=== PATIENT | female | born 1990 | race Caucasian/White ===

== ENCOUNTER 2019-06-05 17:27 | Inpatient (IN) | payer OTHER ==
[~2019-06-05] VITALS: Ht 167.6 cm; Wt 104.3 kg
--- NOTE | 2019-06-05 17:51 | ED General ---
General Chief Complaint: General Problems/Pain Stated Complaint: TAILBONE PAIN Nursing Triage Note: Pt amb to triage w/o difficulty. a&ox4. C/o tailbone discomfort that began on the evening of 06/04/19. Reports sharp pain radiating from tailbone to bilat dorsal legs. Denies loss of bowel or bladder function. Denies injury. Nursing Sepsis Screen: No Definite Risk Source of Information: Patient Exam Limitations: No Limitations History of Present Illness Date Seen by Provider: Jun 05, 2019 Time Seen by Provider: 17:49 Initial Comments To ER 5 vehicle with reports of midline low back pain that radiates around to the front groin. This began 2-3 days ago. Rates pain 10 out of 10 worsened by movement. No fevers or chills. Reports that she has had vaginal bleeding intermittently for 2 months, seemed to recur yesterday. States that is "always possible" but doesn't know herself to be . States that she did have a miscarriage in October. Timing/Duration: 1-2 Days Severity: Moderate Allergies and Home Medications Allergies Coded Allergies: amoxicillin (Verified Allergy, Unknown, 06/05/19) Patient Home Medication List Home Medication List Reviewed: Yes Review of Systems Review of Systems Constitutional: see HPI EENTM: see HPI Respiratory: no symptoms reported Cardiovascular: no symptoms reported Genitourinary: no symptoms reported Musculoskeletal: see HPI, back pain Skin: no symptoms reported Psychiatric/Neurological: No Symptoms Reported Past Zlqesyn-Adjchh-Owiayy Hx Patient Social History Recent Foreign Travel: No Contact w/Someone Who Travel: No Recent Infectious Disease Expo: No Physical Exam Vital Signs Vital Signs - First Documented 06/05/19 17:29 Temp 96.7 Pulse 99 Resp 17 B/P (MAP) 122/77 (92) Pulse Ox 99 O2 Delivery Room Air Capillary Refill : Less Than 3 Seconds Height, Weight, BMI Height: 5'6.00" Weight: 230lbs. oz. 104.679271rx; BMI Method:Stated General Appearance: WD/WN, Mild Distress (related to pain), Obese Eyes: Bilateral Eye Normal Inspection, Bilateral Eye PERRL, Bilateral Eye EOMI Respiratory: No Accessory Muscle Use, No Respiratory Distress Cardiovascular: Regular Rate, Rhythm, Normal Peripheral Pulses Gastrointestinal: Normal Bowel Sounds, Non Tender, Soft Back: Normal Inspection, Other (there is no pilonidal abscess, no erythema or fluctuance at the top of the gluteal cleft.) Neurologic/Psychiatric: Alert, Oriented x3, No Motor/Sensory Deficits Skin: Normal Color, Warm/Dry Progress/Results/Core Measures Suspected Sepsis Recent Fever Within 48 Hours: No Infection Criteria Present: None New/Unexplained Altered Menta: No Sepsis Screen: No Definite Risk SIRS Temperature:96.7 Pulse: 99 Respiratory Rate: 17 Laboratory Tests 06/05/19 18:00: White Blood Count 13.7H Blood Pressure 122 /77 Mean: 92 Laboratory Tests 06/05/19 18:00: Creatinine 0.77, Platelet Count 247, Total Bilirubin 0.5 Results/Orders Lab Results Laboratory Tests Test 06/05/19 17:48 06/05/19 18:00 Range/Units Urine Color YELLOW Urine Clarity CLEAR Urine pH 8 5-9 Urine Specific [place] 1.010 L 1.016-1.022 Urine Protein NEGATIVE NEGATIVE Urine Glucose (UA) NEGATIVE NEGATIVE Urine Ketones NEGATIVE NEGATIVE Urine Nitrite NEGATIVE NEGATIVE Urine Bilirubin NEGATIVE NEGATIVE Urine Urobilinogen NORMAL NORMAL MG/DL Urine Leukocyte Esterase 1+ H NEGATIVE Urine RBC (Auto) 4+ H NEGATIVE Urine RBC 10-25 H /HPF Urine WBC 5-10 H /HPF Urine Squamous Epithelial Cells 5-10 /HPF Urine Crystals NONE /LPF Urine Bacteria MODERATE H /HPF Urine Casts NONE /LPF Urine Mucus NEGATIVE /LPF Urine Culture Indicated YES White Blood Count 13.7 H 4.3-11.0 10^3/uL Red Blood Count 4.12 L 4.35-5.85 10^6/uL Hemoglobin 12.3 11.5-16.0 G/DL Hematocrit 37 35-52 % Mean Corpuscular Volume 90 80-99 FL Mean Corpuscular Hemoglobin 30 25-34 PG Mean Corpuscular Hemoglobin Concent 33 32-36 G/DL Red Cell Distribution Width 15.7 H 10.0-14.5 % Platelet Count 247 130-400 10^3/uL Mean Platelet Volume 10.6 H 7.4-10.4 FL Neutrophils (%) (Auto) 77 H 42-75 % Lymphocytes (%) (Auto) 17 12-44 % Monocytes (%) (Auto) 5 0-12 % Eosinophils (%) (Auto) 1 0-10 % Basophils (%) (Auto) 0 0-10 % Neutrophils # (Auto) 10.5 H 1.8-7.8 X 10^3 Lymphocytes # (Auto) 2.3 1.0-4.0 X 10^3 Monocytes # (Auto) 0.7 0.0-1.0 X 10^3 Eosinophils # (Auto) 0.2 0.0-0.3 10^3/uL Basophils # (Auto) 0.0 0.0-0.1 10^3/uL Sodium Level 137 135-145 MMOL/L Potassium Level 3.9 3.6-5.0 MMOL/L Chloride Level 106 98-107 MMOL/L Carbon Dioxide Level 21 21-32 MMOL/L Anion Gap 10 5-14 MMOL/L Blood Urea Nitrogen 4 L 7-18 MG/DL Creatinine 0.77 0.60-1.30 MG/DL Estimat Glomerular Filtration Rate > 60 BUN/Creatinine Ratio 5 Glucose Level 80 70-105 MG/DL Calcium Level 8.7 8.5-10.1 MG/DL Corrected Calcium 9.3 8.5-10.1 MG/DL Total Bilirubin 0.5 0.1-1.0 MG/DL Aspartate Amino Transf (AST/SGOT) 6 5-34 U/L Alanine Aminotransferase (ALT/SGPT) 9 0-55 U/L Alkaline Phosphatase 175 H 40-136 U/L Total Protein 6.4 6.4-8.2 GM/DL Albumin 3.2 3.2-4.5 GM/DL My Orders Orders - JEFF VYAS APRN Hydrocodone/Apap 5/325 Tablet (Lortab 5 (06/05/19 18:00) Ketorolac Injection (Toradol Injection) (06/05/19 18:00) Ua Culture If Indicated (06/05/19 17:46) Urine Bedside (06/05/19 17:46) Urine Culture (06/05/19 17:48) Cbc With Automated Diff (06/05/19 18:09) Comprehensive Metabolic Panel (06/05/19 18:09) Ua Culture If Indicated (06/05/19 18:09) Ed Iv/Invasive Line Start (06/05/19 18:09) Hcg,Quantitative (06/05/19 18:09) Oxytocin/Normal Saline (Pitocin Pre-Mix) (06/05/19 18:20) Vital Signs/I&O 8/15/19 17:29 Temp 96.7 Pulse 99 Resp 17 B/P (MAP) 122/77 (92) Pulse Ox 99 O2 Delivery Room Air Capillary Refill : Less Than 3 Seconds Blood Pressure Mean: 92 Departure Communication (Admissions) 1756-Bedside test is positive (pt informed of this but otherwise unaware). We will follow this with labs. Hydrocodone was given for pain. 2-3 minutes ago. Do not have ultrasound available here, she will need transferred tonight for ultrasound to rule out ectopic. Dr MACHADO at bedside to evaluate bedside ultrasound, rounded structure midline low pelvis, when scanning further to the right there is appearance of ribs and spinal column. Dr. BREWSTER was called, patient transferred to women's services. Impression Primary Impression: Pain during labor Disposition: ADMITTED INPATIENT Condition: Stable Admissions Decision to Admit Reason: Admit from ER (General) Decision to Admit/Date: Jun 05, 2019 Time/Decision to Admit Time: 18:38 Departure-Patient Inst. Referrals: NO,LOCAL PHYSICIAN (PCP/Family) Primary Care Physician Images Torso/Trunk 1 - Other-See Progress Note 1 - Other-See Progress Note JEFF VYAS PUBLISHING DIRECTOR Jun 05, 2019 17:51
[2019-06-05 17:53] LABS: BILIRUBIN,URINE NEGATIVE (NEGATIVE); CLARITY,URINE CLEAR; COLOR,URINE YELLOW; GLUCOSE, URINE (UA) NEGATIVE (NEGATIVE); KETONES,URINE NEGATIVE (NEGATIVE); LEUKOCYTE ESTERASE ,URINE 1+ (NEGATIVE); NITRITE,URINE NEGATIVE (NEGATIVE); PH,URINE 8 (5-9); PROTEIN,URINE NEGATIVE (NEGATIVE); UROBILINOGEN,URINE NORMAL (NORMAL)
[2019-06-05] MEDS ORDERED: HYDROcodone/APAP 5 MG/325 MG (LORTAB) TAB PO ONE (18:00)
[2019-06-05] MEDS ORDERED: KETOROLAC 30 MG/ML VIAL IM ONE (18:00)
[2019-06-05 18:08] LABS: BACTERIA,URINE MODERATE /HPF
[2019-06-05 18:16] LABS: BASOPHILS % (AUTO) 0 % (0-10); EOSINOPHILS # (AUTO) 0.2 10^3/uL (0.0-0.3); EOSINOPHILS % (AUTO) 1 % (0-10); HEMATOCRIT 37 % (35-52); HEMOGLOBIN 12.3 G/DL (11.5-16.0); LYMPHOCYTES # (AUTO) 2.3 X 10^3 (1.0-4.0); LYMPHOCYTES % (AUTO) 17 % (12-44); MEAN CORPUSCULAR HEMOGLOBIN 30 PG (25-34); MEAN CORPUSCULAR HGB CONC 33 G/DL (32-36); MEAN CORPUSCULAR VOLUME 90 FL (80-99); MEAN PLATELET VOLUME 10.6 FL (7.4-10.4); MONOCYTES # (AUTO) 0.7 X 10^3 (0.0-1.0); MONOCYTES % (AUTO) 5 % (0-12); NEUTROPHILS # (AUTO) 10.5 X 10^3 (1.8-7.8); NEUTROPHILS % (AUTO) 77 % (42-75); PLATELET COUNT 247 10^3/uL (130-400); RED CELL DISTRIBUTION WIDTH 15.7 % (10.0-14.5); WHITE BLOOD COUNT 13.7 10^3/uL (4.3-11.0)
[2019-06-05] MEDS ORDERED: OXYTOCIN/NORMAL SALINE 500 ML IV ONE (18:20)
--- NOTE | 2019-06-05 18:21 | NUR ---
1800: Pt moved to room #9 for bedside ultrasound. 1810: Bedside ultrasound preformed by Dr. Bernard & Enoc Spivey, STOPE MINER 1815: Dr. Fischer's vaginally checked pt (dialated 8cm 100% effaced) 1818: 18g IV to lt a/c accessed by MICHAEL Cadena. 181: 18g IV to rt a/c accessed by MICHAEL Gupta. 182: Dc'd pt via ED cart for emergent admission to OB. 1823: Pt arrives to OB. OB staff to assume care of pt @ this time.
[2019-06-05] MEDS ORDERED: LACTATED RINGERS 1,000 ML IV ONE (18:23)
[2019-06-05 18:24] VITALS: BP 126/88
[2019-06-05] MEDS ORDERED: CLINDAMYCIN 900 MG/50 ML IVPB 50 ML IV ONE (18:26)
[2019-06-05 18:27] LABS: ALANINE AMINOTRANSFERASE 9 U/L (0-55); ALBUMIN 3.2 GM/DL (3.2-4.5); ALKALINE PHOSPHATASE 175 U/L (40-136); BILIRUBIN,TOTAL 0.5 MG/DL (0.1-1.0); BUN/CREATININE RATIO 5; CALCIUM 8.7 MG/DL (8.5-10.1); CARBON DIOXIDE 21 MMOL/L (21-32); CHLORIDE 106 MMOL/L (98-107); CREATININE SERUM 0.77 MG/DL (0.60-1.30); GFR ESTIMATED > 60; GLUCOSE 80 MG/DL (70-105); POTASSIUM 3.9 MMOL/L (3.6-5.0); SODIUM 137 MMOL/L (135-145); TOTAL PROTEIN 6.4 GM/DL (6.4-8.2)
[2019-06-05] MEDS ORDERED: BETAMETHASONE ACE/NA PHOS 6 MG/ML (CELESTONE SOLUSPAN) ONE (18:31)
[2019-06-05] MEDS ORDERED: LIDOCAINE/EPI 2% 1:200,00 (XYLOCAINE) 10 ML VIAL ONE (18:42)
--- NOTE | 2019-06-05 18:57 | History & Physical-OB ---
OB - Chief Complaint & HPI Date/Time Date of Admission: Date of Admission: Jun 05, 2019 at 18:20 Date seen by a Provider: Jun 05, 2019 Time Seen by a Provider: 06:30 Chief Complaint/History OB-Reason for Admission/Chief: Onset of Labor Hx : 5 Estimated Date of Conception: Unknown, didnt know she was . FUndal height 35cm Admission Nurse Assessment Rev: Yes Allergies and Home Medications Allergies Coded Allergies: amoxicillin (Verified Allergy, Unknown, 06/05/19) Patient Home Medication List Home Medication List Reviewed: Yes OB - History Hx of Present Care: Yes Ultrasounds: No ultrasounds Information Pre-Hospital Medication Admins: Tylenol @ 0900 Patient Past Medical History none per patient Social History/Family History Recent Infectious Disease Expo: No OB - Admission Exam Physical Exam Vitals: Vital Signs 06/05/19 17:29 Temp 96.7 Pulse 99 Resp 17 B/P (MAP) 122/77 (92) Pulse Ox 99 O2 Delivery Room Air HEENT: NCAT Heart: Rhythm Normal Lungs: Clear Abdomen: Gravid Extremities: Normal Reflexes: Normal Cervical Dilatation: 7cm Effacement: 100% Station: -1 Membranes: Intact Heart Rate: 130's Accelerations: Accelerations Present Decelerations: No Decelerations Short Term Variability: Present Management Planner Variability: Average (6-25) Contractions on Admission: 6-10 Minutes Apart Labs Laboratory Tests Test 06/05/19 17:48 06/05/19 18:00 Range/Units Urine Color YELLOW Urine Clarity CLEAR Urine pH 8 5-9 Urine Specific [place] 1.010 L 1.016-1.022 Urine Protein NEGATIVE NEGATIVE Urine Glucose (UA) NEGATIVE NEGATIVE Urine Ketones NEGATIVE NEGATIVE Urine Nitrite NEGATIVE NEGATIVE Urine Bilirubin NEGATIVE NEGATIVE Urine Urobilinogen NORMAL NORMAL MG/DL Urine Leukocyte Esterase 1+ H NEGATIVE Urine RBC (Auto) 4+ H NEGATIVE Urine RBC 10-25 H /HPF Urine WBC 5-10 H /HPF Urine Squamous Epithelial Cells 5-10 /HPF Urine Crystals NONE /LPF Urine Bacteria MODERATE H /HPF Urine Casts NONE /LPF Urine Mucus NEGATIVE /LPF Urine Culture Indicated YES White Blood Count 13.7 H 4.3-11.0 10^3/uL Red Blood Count 4.12 L 4.35-5.85 10^6/uL Hemoglobin 12.3 11.5-16.0 G/DL Hematocrit 37 35-52 % Mean Corpuscular Volume 90 80-99 FL Mean Corpuscular Hemoglobin 30 25-34 PG Mean Corpuscular Hemoglobin Concent 33 32-36 G/DL Red Cell Distribution Width 15.7 H 10.0-14.5 % Platelet Count 247 130-400 10^3/uL Mean Platelet Volume 10.6 H 7.4-10.4 FL Neutrophils (%) (Auto) 77 H 42-75 % Lymphocytes (%) (Auto) 17 12-44 % Monocytes (%) (Auto) 5 0-12 % Eosinophils (%) (Auto) 1 0-10 % Basophils (%) (Auto) 0 0-10 % Neutrophils # (Auto) 10.5 H 1.8-7.8 X 10^3 Lymphocytes # (Auto) 2.3 1.0-4.0 X 10^3 Monocytes # (Auto) 0.7 0.0-1.0 X 10^3 Eosinophils # (Auto) 0.2 0.0-0.3 10^3/uL Basophils # (Auto) 0.0 0.0-0.1 10^3/uL Sodium Level 137 135-145 MMOL/L Potassium Level 3.9 3.6-5.0 MMOL/L Chloride Level 106 98-107 MMOL/L Carbon Dioxide Level 21 21-32 MMOL/L Anion Gap 10 5-14 MMOL/L Blood Urea Nitrogen 4 L 7-18 MG/DL Creatinine 0.77 0.60-1.30 MG/DL Estimat Glomerular Filtration Rate > 60 BUN/Creatinine Ratio 5 Glucose Level 80 70-105 MG/DL Calcium Level 8.7 8.5-10.1 MG/DL Corrected Calcium 9.3 8.5-10.1 MG/DL Total Bilirubin 0.5 0.1-1.0 MG/DL Aspartate Amino Transf (AST/SGOT) 6 5-34 U/L Alanine Aminotransferase (ALT/SGPT) 9 0-55 U/L Alkaline Phosphatase 175 H 40-136 U/L Total Protein 6.4 6.4-8.2 GM/DL Albumin 3.2 3.2-4.5 GM/DL OB - Assessment/Plan/Diagnosis Assessment Assessment: active labor Admission Dx 28 yo @ 35 weeks estimated by fundal height No care GBS unknown Admission Status: Inpatient Order (span 2 midnights) Reason for Inpatient Admission: labor Plan Plan: Expectant Management Other Plan Admit labs, BMZ, Clindamycin 900 mg IV for GBS prophylaxis COSME BREWSTER DO Jun 05, 2019 18:57
--- NOTE | 2019-06-05 19:00 | NUR ---
REFER TO LABOR FLOW SHEET.
[2019-06-05 19:23] LABS: AMPHETAMINE SCREEN, URINE NEGATIVE (NEGATIVE); BARBITURATE SCREEN URINE NEGATIVE (NEGATIVE); BENZODIAZEPINES SCREEN URINE NEGATIVE (NEGATIVE); CANNABINOID SCREEN, URINE NEGATIVE (NEGATIVE); COCAINE SCREEN URINE NEGATIVE (NEGATIVE); METHADONE STAT NEGATIVE (NEGATIVE); METHAMPHETAMINE SCREEN URINE S NEGATIVE (NEGATIVE); OPIATE SCREEN URINE NEGATIVE (NEGATIVE); OXYCODONE STAT NEGATIVE (NEGATIVE); PROPOXYPHENE STAT NEGATIVE (NEGATIVE); TRICYCLIC ANTIDEPRESSANTS SCRE NEGATIVE (NEGATIVE)
[2019-06-05] MEDS: OXYTOCIN/NORMAL SALINE 500 ML IV SCH ×2 (20:20→20:51)
[2019-06-05 20:30] VITALS: BP 108/56
[2019-06-05] MEDS ORDERED: WITCH HAZEL(TUCKS) 40 EA JAR TOP PRN (20:30)
[2019-06-05] MEDS ORDERED: MEASLES,MUMPS,RUBELLA 1 EA INJ SQ ONE (20:30)
[2019-06-05] MEDS ORDERED: BENZOCAINE/MENTHOL (DERMOPLAST) 56 ML CAN TP PRN (20:30)
[2019-06-05] MEDS ORDERED: TETANUS,DIPTH,PERTUSS P/F (BOOSTRIX) 0.5 ML VIAL IM ONE (20:30)
[2019-06-05] MEDS ORDERED: HYDROcodone/APAP 5 MG/325 MG (LORTAB) TAB PO PRN (20:30)
--- NOTE | 2019-06-05 20:35 | OB Labor & Delivery Record ---
L&D History Date of Service Date of Service: Jun 05, 2019 History Expected Date of Delivery: Jun 19, 2019 Hx : 5 Complications Events: No Care Operative Indications (Cesarea: N/A-Vaginal Delivery Intrapartal Events: None Other Complications Ineffective maternal pushing, heart rate decelerations. L&D Stage1 Stage One Onset of Labor - Date: Jun 05, 2019 Monitors and Tracing Monitor Mode: External Monitor Accelerations: Uniform Monitor Decelerations: None Station: 0 Assisted Variability: Average (6-10) Short Term Variability: Present Presentation: Vertex Vital Signs VS - Last 72 Hours, by Label 06/05/19 06/05/19 17:29 18:21 Temp 96.7 96.7 Pulse 99 110 Resp 17 25 B/P (MAP) 122/77 (92) 82/64 (70) Pulse Ox 99 100 O2 Delivery Room Air Room Air Rupture of Membranes Spontaneous Ruture of Membrane: No Amniotic Membrane Fluid Desc.: Clear Vaginal Bleeding Description: Normal Show Progress/Notes Patient presented to ER with no care for back pain and was found to be with unknown due date and fundal ht of 35-37 cm. I was asked to come for delivery due to 4th baby and 7 cm. L&D Stage2 Stage Two Stage II Date: Jun 05, 2019 Monitors and Tracing Monitor Mode: External Monitor Accelerations: Uniform Monitor Decelerations: Variable Assisted Variability: Average (6-10) Short Term Variability: Present Position: Right Occiput Anterior Presentation: Vertex Signs of Distress by FHT Signs of Distress heart rate decelerations that were variable and dropping as low as 60s. After an hour of pushing and no progression of station beyond +2, mother was requesting . Pushing became very ineffective at that point. Kiwi vacuum extraction placed at flexion point on scalp and 450mmHg applied at handpiece. With next maternal push the was brought easily to +3 station, and popoff occured with extension of the head. I was unable to extend the head completely to deliver, so the vacuum was reapplied just long enough to allow for extension. At which point nose and orophanxy was bulb suction. Nuchal cord reduced. Cord Descript/Complications Cord Vessel Description: 3 Vessels Delivery Type Delivery Method: Low Vacuum Extraction Anterior Shoulder: Right Episiotomy/Perineal Laceration Laceraction(s)/Extensions: No Condition of Infant Delivery 1 minute Comment: 8 5 minute Comment: 9 Notes Live male infant weight 7lbs 8oz Condition of Condition of : Living Exam: No Observed Abnormalities Resuscitation Resuscitation: N/A - Spontaneous Resp L&D Stage3 Stage Three Stage III Date: Jun 05, 2019 Pictocin Pitocin Administration Comment: 30 mu wide open at delivery of placenta Placenta Delivery Placenta Delivery: Spontaneous Delivery Summary Summary Estimated blood loss (mL): 300 mL Attending at delivery: Cosme Brewster DO Condition of Delivery Examined: Cervix Examined, Uterus Explored Post Hemorrhage: No Condition of Mother stable Condition of (s) stable COSME BREWSTER DO Jun 05, 2019 20:35
[2019-06-05 20:45] VITALS: BP 95/61
[2019-06-05 21:00] VITALS: BP 95/52
[2019-06-05 21:15] VITALS: BP 108/56
[2019-06-05 21:30] VITALS: BP 108/56
[2019-06-05] MEDS ORDERED: CATHETER FLUSH 10 ML SYR IV SCH (22:00)
[2019-06-05] MEDS: DOCUSATE SODIUM 100 MG (COLACE) CAP PO SCH (22:30)
[2019-06-05] MEDS: IBUPROFEN 600 MG (MOTRIN) TAB PO SCH (22:30)
--- NOTE | 2019-06-05 22:30 | NUR ---
Pt up to bathroom for first time since delivery, void, pericare pads changed. pt ambulatory to pp room 310, grandmother pushing in open crib to mob room. oriented to call system and surroundings, no ss distress, denies needs, will cont to monitor.
[2019-06-06 01:29] VITALS: BP 105/68
[2019-06-06] MEDS: IBUPROFEN 600 MG (MOTRIN) TAB PO SCH ×3 (04:23→17:17)
[2019-06-06 04:24] VITALS: BP 96/53
[2019-06-06 05:54] LABS: BASOPHILS % (AUTO) 0 % (0-10); EOSINOPHILS % (AUTO) 0 % (0-10); HEMATOCRIT 33 % (35-52); LYMPHOCYTES # (AUTO) 1.6 X 10^3 (1.0-4.0); LYMPHOCYTES % (AUTO) 9 % (12-44); MEAN CORPUSCULAR HEMOGLOBIN 30 PG (25-34); MEAN CORPUSCULAR HGB CONC 33 G/DL (32-36); MEAN CORPUSCULAR VOLUME 90 FL (80-99); MEAN PLATELET VOLUME 10.8 FL (7.4-10.4); MONOCYTES # (AUTO) 0.5 X 10^3 (0.0-1.0); MONOCYTES % (AUTO) 3 % (0-12); NEUTROPHILS # (AUTO) 15.6 X 10^3 (1.8-7.8); NEUTROPHILS % (AUTO) 88 % (42-75); PLATELET COUNT 230 10^3/uL (130-400); RED CELL DISTRIBUTION WIDTH 15.4 % (10.0-14.5); WHITE BLOOD COUNT 17.7 10^3/uL (4.3-11.0)
[2019-06-06 07:42] LABS: BAND NEUTROPHILS 1 %; BASOPHILS % (MANUAL) 0 %; EOSINOPHILS % (MANUAL) 0 %; LYMPHOCYTES % (MANUAL) 11 %; MONOCYTES % (MANUAL) 3 %; NEUTROPHILS % (MANUAL) 85 %; RBC MORPH NORMAL
--- NOTE | 2019-06-06 09:41 | Postpartum Progress Note ---
Note Note Day # 1 Subjective: Patient is without complaints. Ambulating, voiding. Tolerating a regular diet without nausea or vomiting. Normal lochia. Pain is well controlled with oral pain medications. Objective: Vital Sign - Last 24 Hours 06/05/19 06/05/19 06/05/19 06/05/19 17:29 18:21 18:24 19:45 Temp 96.7 96.7 97.4 Pulse 99 110 103 Resp 17 25 20 B/P (MAP) 122/77 (92) 82/64 (70) 126/88 (101) Pulse Ox 99 100 O2 Delivery Room Air Room Air Room Air Non Rebreather O2 Flow Rate 15.00 06/05/19 06/05/19 06/05/19 06/05/19 20:00 20:15 20:30 20:45 Temp 97.8 97.8 Pulse 88 86 Resp 18 18 B/P (MAP) 108/56 (73) 95/61 (72) O2 Delivery Non Rebreather Non Rebreather Room Air Room Air O2 Flow Rate 15.00 15.00 06/05/19 06/05/19 06/05/19 06/06/19 21:00 21:15 21:30 01:29 Temp 98.2 98.5 98.4 98.3 Pulse 86 88 88 81 Resp 18 18 18 18 B/P (MAP) 95/52 (66) 108/56 (73) 108/56 (73) 105/68 (80) Pulse Ox 98 O2 Delivery Room Air Room Air Room Air Room Air 06/06/19 04:24 Temp 97.6 Pulse 66 Resp 18 B/P (MAP) 96/53 (67) Pulse Ox 97 O2 Delivery Room Air Physical Exam: General - Alert and oriented, no apparent distress Abdomen - Soft, appropriately tender to palpation, non-distended, fundus firm at umbilicus Extremities - no edema, negative Kendrick's bilaterally Assessment: PPD 1 VAVD Acute blood loss anemia No care BMI 37 Plan: Routine care. Encourage breast feeding. Encourage ambulation. Ferrous sulfate supplementation. Plan for discharge tomorrow Vitals - Labs Vital Signs - I&O Vital Signs Date Time Temp Pulse Resp B/P (MAP) Pulse Ox O2 Delivery O2 Flow Rate FiO2 06/06/19 04:24 97.6 66 18 96/53 (67) 97 Room Air 06/06/19 01:29 98.3 81 18 105/68 (80) 98 Room Air 06/05/19 21:30 98.4 88 18 108/56 (73) Room Air 06/05/19 21:15 98.5 88 18 108/56 (73) Room Air 06/05/19 21:00 98.2 86 18 95/52 (66) Room Air 06/05/19 20:45 97.8 86 18 95/61 (72) Room Air 06/05/19 20:30 97.8 88 18 108/56 (73) Room Air 06/05/19 20:15 Non Rebreather 15.00 06/05/19 20:00 Non Rebreather 15.00 06/05/19 19:45 Non Rebreather 15.00 06/05/19 18:24 97.4 103 20 126/88 (101) Room Air 06/05/19 18:21 96.7 110 25 82/64 (70) 100 Room Air 06/05/19 17:29 96.7 99 17 122/77 (92) 99 Room Air Labs Laboratory Tests 06/05/19 17:48: Urine Color YELLOW, Urine Clarity CLEAR, Urine pH 8, Urine Specific [place] 1.010L, Urine Protein NEGATIVE, Urine Glucose (UA) NEGATIVE, Urine Ketones NEGATIVE, Urine Nitrite NEGATIVE, Urine Bilirubin NEGATIVE, Urine Urobilinogen NORMAL, Urine Leukocyte Esterase 1+H, Urine RBC (Auto) 4+H, Urine RBC 10-25H, Urine WBC 5-10H, Urine Squamous Epithelial Cells 5-10, Urine Crystals NONE, Urine Bacteria MODERATEH, Urine Casts NONE, Urine Mucus NEGATIVE, Urine Culture Indicated YES, Urine Opiates Screen NEGATIVE, Urine Oxycodone Screen NEGATIVE, Urine Methadone Screen NEGATIVE, Urine Propoxyphene Screen NEGATIVE, Urine Barbiturates Screen NEGATIVE, Ur Tricyclic Antidepressants Screen NEGATIVE, Urine Phencyclidine Screen NEGATIVE, Urine Amphetamines Screen NEGATIVE, Urine Methamphetamines Screen NEGATIVE, Urine Benzodiazepines Screen NEGATIVE, Urine Cocaine Screen NEGATIVE, Urine Cannabinoids Screen NEGATIVE 06/05/19 18:00: White Blood Count 13.7H, Red Blood Count 4.12L, Hemoglobin 12.3, Hematocrit 37, Mean Corpuscular Volume 90, Mean Corpuscular Hemoglobin 30, Mean Corpuscular Hemoglobin Concent 33, Red Cell Distribution Width 15.7H, Platelet Count 247, Mean Platelet Volume 10.6H, Neutrophils (%) (Auto) 77H, Lymphocytes (%) (Auto) 17, Monocytes (%) (Auto) 5, Eosinophils (%) (Auto) 1, Basophils (%) (Auto) 0, Neutrophils # (Auto) 10.5H, Lymphocytes # (Auto) 2.3, Monocytes # (Auto) 0.7, Eosinophils # (Auto) 0.2, Basophils # (Auto) 0.0, Sodium Level 137, Potassium Level 3.9, Chloride Level 106, Carbon Dioxide Level 21, Anion Gap 10, Blood Urea Nitrogen 4L, Creatinine 0.77, Estimat Glomerular Filtration Rate > 60, B UN/Creatinine Ratio 5, Glucose Level 80, Calcium Level 8.7, Corrected Calcium 9.3, Total Bilirubin 0.5, Aspartate Amino Transf (AST/SGOT) 6, Alanine Aminotransferase (ALT/SGPT) 9, Alkaline Phosphatase 175H, Total Protein 6.4, Albumin 3.2, Thyroid Stimulating Hormone (TSH) 1.00, Human Chorionic Gonadotropin, Quant [id number] 06/06/19 05:31: White Blood Count 17.7H, Red Blood Count 3.70L, Hemoglobin 11.0L, Hematocrit 33L , Mean Corpuscular Volume 90, Mean Corpuscular Hemoglobin 30, Mean Corpuscular Hemoglobin Concent 33, Red Cell Distribution Width 15.4H, Platelet Count 230, Mean Platelet Volume 10.8H, Neutrophils (%) (Auto) 88H, Lymphocytes (%) (Auto) 9L, Monocytes (%) (Auto) 3, Eosinophils (%) (Auto) 0, Basophils (%) (Auto) 0, Neutrophils # (Auto) 15.6H, Lymphocytes # (Auto) 1.6, Monocytes # (Auto) 0.5, Eosinophils # (Auto) 0.0, Basophils # (Auto) 0.0, Neutrophils % (Manual) 85, Lymphocytes % (Manual) 11, Monocytes % (Manual) 3, Eosinophils % (Manual) 0, Basophils % (Manual) 0, Band Neutrophils 1, Blood Morphology Comment NORMAL COSME BREWSTER DO Jun 06, 2019 09:41
--- NOTE | 2019-06-06 09:47 | Discharge Inst-Women's Service ---
Discharge Inst-Women's Serv Depart Medication/Instructions New, Converted or Re-Newed RX: RX on Chart Problems Reviewed?: Yes Consults/Follow Up Additional Follow Up: Yes Orders/Referrals PPD 2 VAVD Activity Activity: Activity as Tolerated Driving Instructions: No Driving for 1 Week NO SMOKING: NO SMOKING Nothing Inside Vagina: No Douching, No Ollie, No Tampons Diet Discharge Diet: No Restrictions Symptoms to Report to : Bleeding Excessive, Pain Increased, Fever Over 101 Degrees F, Cramps in Feet or Legs, Questions/Concerns For Any Problems or Questions: Contact Your Physician COSME BREWSTER DO Jun 06, 2019 09:47
[2019-06-06] MEDS ORDERED: Benzocaine/Menthol TP (09:48)
[2019-06-06] MEDS ORDERED: DOCU100C37 PO (09:48)
[2019-06-06] MEDS ORDERED: IBUP-844 PO (09:48)
[2019-06-06] MEDS ORDERED: ACHD5005 PO (09:48)
[2019-06-06] MEDS: DOCUSATE SODIUM 100 MG (COLACE) CAP PO SCH ×2 (10:42→20:14)
[2019-06-06 10:43] VITALS: BP 115/80
--- NOTE | 2019-06-06 14:05 | NUR ---
CM/SS [facility] intake [id number]. Patient has had questionable care. Her UDS was negative here at admission, though, is believed previous methamphetamine use. Meconium will be collected and sent in.
--- NOTE | 2019-06-06 14:06 | NUR ---
CM/SS spoke with the patient, her parents in room also and her three year old daughter. She stated that she has all needs for the baby even though did not know she was , once family found out what the surprise was they have gotten her things or gathered what they had. She has crib, pack n play and car seat from her three year old can use. She did discuss that she has a 13 and 15 year old daughters that live with their dad and are autistic, did have CPS involvement with them 10-12 years ago. She intends to apply for WIC and Parents as [employer] in [place]. Baby named Ugo Martinez. [place] [employer] called and stated that she does not have open cases at this time and does not meet their standards for referral currently. Addendum: 06/06/19 at 1434 by TWAN BENTLEY [employer]TY [facility]ac[facility] called and stated now after got email that it did not screen, that they would have a worker from [facility] come out to talk to the patient.
[2019-06-06 14:10] VITALS: BP 99/56
[2019-06-06] MEDS ORDERED: CALCIUM CARBONATE 500 MG (TUMS) TAB.CHEW PO NR (17:45)
[2019-06-06 19:12] VITALS: BP 109/66
[2019-06-07] MEDS: IBUPROFEN 600 MG (MOTRIN) TAB PO SCH ×2 (00:26→06:10)
[2019-06-07 00:30] VITALS: BP 115/67
[2019-06-07 06:12] VITALS: BP 105/69
[2019-06-07 08:24] VITALS: BP 93/63
--- NOTE | 2019-06-07 08:24 | NUR ---
initial shift assessment completed, see interventions for further. pt denies c/o's @ time.
--- NOTE | 2019-06-07 09:09 | NUR ---
dismissal instructions given, verbalizes understanding. reviewed medications and administration schedule. instructed pt to schedule 6 week PP appointment.signature page signed, placed on chart.
--- NOTE | 2019-06-07 11:05 | NUR ---
Pt ambulated to private vehicle with MICHAEL Vazquez, and mother @ side. secured in rear facing car seat. pt stable with no sx's of distress noted.
--- NOTE | 2019-06-10 10:56 | Physician Query-Final Dx ---
DOROTHY FLOWERS 06/10/19 1056: Final Diagnosis Give Final Diagnosis Please give Final Diagnosis COSME BREWSTER DO 06/11/19 0811: Final Diagnosis Give Final Diagnosis PPD 2 VAVD No care Acute blood loss anemia DOROTHY FLOWERS Jun 10, 2019 10:56 COSME BREWSTER DO Jun 11, 2019 08:11
== END 2019-06-07 11:05 | disposition home or self-care (01) | DRG 806 ==
LOC: ER 17:29 → LDRP 18:20
PROVIDERS: ADMIT Obstetrics & Gynecology; ATTEND Obstetrics & Gynecology
PROC: 10D07Z6 Extraction of Products of Conception, Vacuum, Via Natural or Artificial Opening (ICD-10-PCS; principal; 2019-06-05)
DX: O60.23X0 Term delivery with preterm labor, third trimester, not applicable or unspecified (principal); O09.33 Supervision of pregnancy with insufficient antenatal care, third trimester; O76 Abnormality in fetal heart rate and rhythm complicating labor and delivery; O75.81 Maternal exhaustion complicating labor and delivery; O69.81X0 Labor and delivery complicated by cord around neck, without compression, not applicable or unspecified; O90.81 Anemia of the puerperium; D62 Acute posthemorrhagic anemia; Z37.0 Single live birth; Z3A.35 35 weeks gestation of pregnancy
CPT/HCPCS: 36415; 80053; 80306; 81000; 84443; 84702; 84703; 85007; 85025; 85027; 86703; 86706; 86762; 86780; 86850; 86900; 86901; 87088; 94668; 99212